=== PATIENT | male | born 1995 | race Caucasian/White ===

== ENCOUNTER 2022-04-07 13:34 | Outpatient (CLI) | payer OTHER, SELFPAY ==
[2022-04-07 22:10] LABS: Albumin* 5.1 g/dL (3.3-5.0); Chloride* 101 mmol/L (96-114); Potassium* 4.3 mmol/L (3.6-5.1); Sodium* 136 mmol/L (135-149)
[2022-04-07 22:11] LABS: Aspartate Amino Transferase* 52 U/L (12-35); Blood Urea Nitrogen* 22 mg/dL (5-24); Carbon Dioxide* 26 mmol/L (20-32); Cholesterol* 291 mg/dL (90-199); Creatinine* 1.2 mg/dL (0.5-1.5); Estimated Glomerular Filt Rate 84 ml/min; Glucose* 96 mg/dL (60-115); Total Protein* 8.1 g/dL (6.0-8.3)
[2022-04-07 22:12] LABS: Alanine Aminotransferase* 46 U/L (4-50); Alkaline Phosphatase* 67 U/L (40-150); Calcium* 9.6 mg/dL (8.4-10.6); HDL Cholesterol* 52 mg/dL (>=40); LDL Cholesterol Calculated 189 mg/dL (<100); Triglycerides* 249 mg/dL (40-149)
[2022-04-10 23:18] LABS: Sex Hormone Binding Globulin 16 nmol/L (17-56); Testosterone, Adult Male 237 ng/dL (300-1080); Testosterone, Free Calculation 57 pg/mL (47-244); Testosterone, Percentage Free 2.4 % (1.6-2.9)
== END 2022-04-07 13:35 | disposition home or self-care (01) ==
PROVIDERS: PCP Physician Assistant Medical; Visit Provider Physician Assistant Medical
DX: Z00.00 Encounter for general adult medical examination without abnormal findings (principal); R03.0 Elevated blood-pressure reading, without diagnosis of hypertension; Z13.6 Encounter for screening for cardiovascular disorders; Z13.29 Encounter for screening for other suspected endocrine disorder
CPT/HCPCS: 80053; 80061; 84270; 84402; 84403; 84443